=== PATIENT | female | born 1990 | race African-American/Black ===

== ENCOUNTER 2018-01-10 15:36 | Emergency (ER) | payer MEDICAID ==
[~2018-01-10] VITALS: Ht 180.3 cm; Wt 97.5 kg
[2018-01-10] MEDS ORDERED: Morphine Sulfate 4mg/ml Inj (IV/IM USE ONLY) IVP ONE (15:45)
[2018-01-10] MEDS ORDERED: Isovue-300 100ml vial INJ PRN (16:00)
[2018-01-10 16:10] VITALS: BP 132/76
[2018-01-10 16:16] LABS: BASOPHILS % (AUTO) 1.1 % (0.0-2.0); EOSINOPHILS % (AUTO) 0.3 % (0.0-3.0); HEMATOCRIT 33.8 % (37.0-47.0); HEMOGLOBIN 10.1 G/DL (12.0-16.0); MEAN CORPUSCULAR VOLUME 65 FL (80-99); MONOCYTES % (AUTO) 8.2 % (1.0-10.0); NEUTROPHILS % (AUTO) 70.4 % (45.0-75.0); PLATELET COUNT 407 K/UL (150-450); RED BLOOD COUNT 5.17 M/UL (4.20-5.40); WHITE BLOOD COUNT 9.7 K/UL (4.8-10.8)
[2018-01-10 16:17] LABS: APPEARANCE,URINE SLIGHTLY CLOUDY; BILIRUBIN, URINE NEGATIVE (NEGATIVE); COLOR,URINE PALE YELLOW; GLUCOSE, URINE (UA) NEGATIVE (NEGATIVE); KETONES,URINE 1+ (NEGATIVE); LEUKOCYTE ESTERASE ,URINE 3+ (NEGATIVE); NITRITE,URINE NEGATIVE (NEGATIVE); PH,URINE 8 (4.5-8.0); PROTEIN,URINE 1+ (NEGATIVE); UROBILINOGEN,URINE NORMAL MG/DL (0.0-1.0)
[2018-01-10 16:31] LABS: ANION GAP 13 mmol/L (5-15); BLOOD UREA NITROGEN 9 mg/dL (7-18); CALCIUM 9.8 MG/DL (8.5-10.1); CARBON DIOXIDE 24 MMOL/L (21-32); CHLORIDE 102 MMOL/L (98-107); CREATININE 0.7 MG/DL (0.55-1.30); SODIUM 139 MMOL/L (136-145)
[2018-01-10 16:35] LABS: ALANINE AMINOTRANSFERASE 8 U/L (12-78); ALBUMIN 3.6 G/DL (3.4-5.0); ALBUMIN/GLOBULIN RATIO 0.7 (1.0-2.7); ALKALINE PHOSPHATASE 59 U/L (46-116); ASPARTATE AMINO TRANSFERASE 8 U/L (15-37); BILIRUBIN,TOTAL 0.3 MG/DL (0.2-1.0)
[2018-01-10 17:55] VITALS: BP 133/80
[2018-01-10] MEDS ORDERED: COLACE100 MG ORAL (18:10)
[2018-01-10] MEDS ORDERED: ONDANSETRON ODT4 MG BC (18:10)
[2018-01-10] MEDS ORDERED: MAGNESIUM CITR296 M1 PO (18:10)
[2018-01-10] MEDS ORDERED: CEPHALEXIN500 MG ORAL (18:10)
[2018-01-10] MEDS ORDERED: METRONIDAZOLE500 MG ORAL (18:10)
[2018-01-10] MEDS ORDERED: IBUPROFEN600 MG ORAL (18:22)
[2018-01-10 18:25] VITALS: BP 133/80
--- NOTE | 2018-01-10 18:53 | Emergency Room Report ---
History of Present Illness General Chief Complaint: Abdominal Pain Source: Patient Present Illness HPI 27-year-old female presents ED for evaluation. Brought in by EMS complaining of abdominal pain with nausea and vomiting 1 day. Crying on evaluation. States that many years ago she had her right ovary removed. Does not know why. States pain is diffuse, 10 out of 10, sharp, nonradiating. Notes vomiting. Denies fevers chills. Denies dysuria or hematuria. States she's had this pain for many years now and does not know why. Has had ultrasounds of her abdomen which were negative. States she has a PMD. No other aggravating relieving factors. Denies any other associated symptoms Allergies: Coded Allergies: No Known Allergies (Unverified , 01/10/18) Patient History Past Medical History: none Past Surgical History: none Pertinent Family History: none Social History: Denies: smoking, alcohol use, drug use Last Menstrual Period: 01/04/18 Now: No : 0 Immunizations: UTD Reviewed Nursing Documentation: PMH: Agreed; PSxH: Agreed Review of Systems All Other Systems: negative except mentioned in HPI Physical Exam Vital Signs Date Time Temp Pulse Resp B/P (MAP) Pulse Ox O2 Delivery O2 Flow Rate FiO2 01/10/18 15:28 98.0 74 18 146/94 98 Room Air 98.1 Sp02 EP Interpretation: reviewed, normal General Appearance: alert, GCS 15, non-toxic, mild distress Head: normocephalic, atraumatic Eyes: bilateral eye normal inspection, bilateral eye PERRL ENT: hearing grossly normal, normal pharynx, no angioedema, normal voice Neck: full range of motion, supple/symm/no masses Respiratory: chest non-tender, lungs clear, normal breath sounds, speaking full sentences Cardiovascular #1: regular rate, rhythm, no edema Cardiovascular #2: 2+ carotid (R), 2+ carotid (L), 2+ radial (R), 2+ radial (L) , 2+ dorsalis pedis (R), 2+ dorsalis pedis (L) Gastrointestinal: normal bowel sounds, soft, non-distended, no guarding, no rebound, tenderness Rectal: deferred Genitourinary: normal inspection, no CVA tenderness Musculoskeletal: back normal, gait/station normal, normal range of motion, non- tender Neurologic: alert, oriented x3, responsive, motor strength/tone normal, sensory intact, speech normal Psychiatric: judgement/insight normal, memory normal, mood/affect normal, no suicidal/homicidal ideation Reflexes: 3+ bicep (R), 3+ bicep (L), 3+ tricep (R), 3+ tricep (L), 3+ knee (R) , 3+ knee (L) Skin: normal color, no rash, warm/dry, well hydrated Lymphatic: no adenopathy Medical Decision Making Diagnostic Impression: Primary Impression: Trichomonas infection Additional Impressions: UTI (urinary tract infection) Qualified Codes: N39.0 - Urinary tract infection, site not specified Constipation Qualified Codes: K59.00 - Constipation, unspecified ER Course Hospital Course 27-year-old F presents to ED with abdominal pain, vomiting Differential diagnosis includes-appendicitis, cholecystitis, small bowel obstruction, gastritis, Clinical course Patient placed on stretcher. After initial history and physical I ordered labs , IV fluids, pain medications and CT scan Labs - no leukocytosis, electrolytes ok, LFTs normal, UA + bacteria + trichimonas CT scan shows complex cystic structure on the left adnexa. Right-sided hydronephrosis with no evidence of stone. There was significant fecal impaction Patient did not have left quadrant pain. I do not believe the adnexa as a source of her pain. Pain was diffuse. Discussed findings with patient - states she will followup with her OBGYN. Presentation consistent with constipation We will prescribe stool softeners, antibiotics for the UTI and for the Trichomonas. Patient states she does have a PMD. Safe for discharge close outpatient follow-up I feel this is a highly complex case requiring extensive working including EKG/ Rhythm strip, Xray/CT/US, Blood/urine lab work, repeat exams while in ED, and administration of strong opiates/narcotics for pain control, admission to hospital or close patient follow up. Diagnosis - trichimonas infection, UTI, constipation Stable and discharged to home. Followup with PMD. Return to ED if symptoms recur or worsen Labs Test 01/10/18 16:08 White Blood Count 9.7 K/UL (4.8-10.8) Red Blood Count 5.17 M/UL (4.20-5.40) Hemoglobin 10.1 G/DL (12.0-16.0) Hematocrit 33.8 % (37.0-47.0) Mean Corpuscular Volume 65 FL (80-99) Mean Corpuscular Hemoglobin 19.5 PG (27.0-31.0) Mean Corpuscular Hemoglobin Concent 29.8 G/DL (32.0-36.0) Red Cell Distribution Width 15.0 % (11.6-14.8) Platelet Count 407 K/UL (150-450) Mean Platelet Volume 7.1 FL (6.5-10.1) Neutrophils (%) (Auto) 70.4 % (45.0-75.0) Lymphocytes (%) (Auto) 20.0 % (20.0-45.0) Monocytes (%) (Auto) 8.2 % (1.0-10.0) Eosinophils (%) (Auto) 0.3 % (0.0-3.0) Basophils (%) (Auto) 1.1 % (0.0-2.0) Urine Color Pale yellow Urine Appearance Slightly cloudy Urine pH 8 (4.5-8.0) Urine Specific [place] 1.010 (1.005-1.035) Urine Protein 1+ (NEGATIVE) Urine Glucose (UA) Negative (NEGATIVE) Urine Ketones 1+ (NEGATIVE) Urine Blood 1+ (NEGATIVE) Urine Nitrite Negative (NEGATIVE) Urine Bilirubin Negative (NEGATIVE) Urine Urobilinogen Normal MG/DL (0.0-1.0) Urine Leukocyte Esterase 3+ (NEGATIVE) Urine RBC 5-10 /HPF (0 - 2) Urine WBC 2-4 /HPF (0 - 2) Urine Squamous Epithelial Cells Many /LPF (NONE/OCC) Urine Bacteria Moderate /HPF (NONE) Urine Trichomonas Few /HPF (NONE) Urine HCG, Qualitative Negative (NEGATIVE) Sodium Level 139 MMOL/L (136-145) Potassium Level 3.0 MMOL/L (3.5-5.1) Chloride Level 102 MMOL/L (98-107) Carbon Dioxide Level 24 MMOL/L (21-32) Anion Gap 13 mmol/L (5-15) Blood Urea Nitrogen 9 mg/dL (7-18) Creatinine 0.7 MG/DL (0.55-1.30) Estimat Glomerular Filtration Rate > 60 mL/min (>60) Glucose Level 104 MG/DL (74-106) Calcium Level 9.8 MG/DL (8.5-10.1) Total Bilirubin 0.3 MG/DL (0.2-1.0) Aspartate Amino Transf (AST/SGOT) 8 U/L (15-37) Alanine Aminotransferase (ALT/SGPT) 8 U/L (12-78) Alkaline Phosphatase 59 U/L (46-116) Total Protein 8.6 G/DL (6.4-8.2) Albumin 3.6 G/DL (3.4-5.0) Globulin 5.0 g/dL Albumin/Globulin Ratio 0.7 (1.0-2.7) Lipase 134 U/L (73-393) CT/MRI/US Diagnostic Results CT/MRI/US Diagnostic Results : Imaging Test Ordered: CT A/P Impression 7.5 cm complex cystic structure in the left pelvis posterior to the uterus is favored to be arising from the left adnexum. This structure appears somewhat tubular and is favored to represent a dilated fallopian tube. Pyosalpinx or hemosalpinx is not excluded. Pelvic ultrasound may be considered for further characterization, as clinically indicated. Fluid in the pelvic cul-de-sac versus 9 cm cystic structure. Mild right hydronephrosis. No calcified renal or ureteral calculi. Subcentimeter pelvic calcifications are favored to be vascular. Spleen, pancreas, gallbladder, liver, and left kidney are unremarkable Last Vital Signs Date Time Temp Pulse Resp B/P (MAP) Pulse Ox O2 Delivery O2 Flow Rate FiO2 01/10/18 18:25 98.0 65 16 133/80 95 Room Air 98.0 Status: improved Disposition: HOME, SELF-CARE Condition: Stable Scripts Ibuprofen* (MOTRIN*) 600 Mg Tablet 600 MG ORAL Q8H PRN for For Pain, #30 TAB 0 Refills Prov: Quoc Noel MD 01/10/18 Metronidazole* (FLAGYL*) 500 Mg Tablet 500 MG ORAL THREE TIMES A DAY, #21 TAB Prov: Quoc Noel MD 01/10/18 Cephalexin* (KEFLEX*) 500 Mg Capsule 500 MG ORAL EVERY 6 HOURS for 7 Days, CAP Prov: Quoc Noel MD 01/10/18 Magnesium Citrate (MAGNESIUM CITRATE) 296 Ml Solution 150 ML PO DAILY for 2 Days, #296 ML Prov: Quoc Noel MD 01/10/18 Ondansetron Odt* (ZOFRAN ODT*) 4 Mg Tab.rapdis 4 MG BC EVERY 6 HOURS PRN for Nausea & Vomiting, #20 TAB 0 Refills Prov: Quoc Noel MD 01/10/18 Docusate Sodium* (COLACE*) 100 Mg Capsule 100 MG ORAL THREE TIMES A DAY for 30 Days, CAP Prov: Quoc Noel MD 01/10/18 Patient Instructions: Constipation, Adult, [id number], Trichomoniasis Quoc Noel MD Jan 10, 2018 18:52
--- NOTE | 2018-01-11 09:24 | Diagnostic Imaging Report ---
Indication: Abdominal pain Technique: Continuous helical transaxial imaging of the abdomen and pelvis was obtained from the lung bases to the pubic symphysis during intravenous contrast administration. Coronal 2-D reformats were also obtained. Study obtained in a Siemens sensation [address] Automatic Exposure Control was utilized. Total Dose length Product (DLP): 1054.[address] Dose Index Volume (CTDIvol): 18.4 mGy Comparison: None Findings: The lung bases are clear. There is mild right hydronephrosis. No obstructing stone is identified. Consider pyelonephritis or pyelitis. There is a complex somewhat elongated cystic structure posterior to the uterus. Further evaluation with ultrasound is recommended. On transaxial images the structure measures about 7 x 3 cm. There is a moderate degree of free fluid within the cul-de-sac. The appendix is normal. A few discrete diverticula noted in the sigmoid colon without definite evidence of diverticulitis. No evidence of bowel obstruction. The liver and spleen, pancreas, gallbladder appear unremarkable. The left kidney is unremarkable. IMPRESSION: 7 x 3 cm complex cystic structure posterior to the uterus not well evaluated on this examination. Further evaluation with pelvic ultrasound is recommended. Moderate free fluid also noted. Mild right hydronephrosis. No obstructing stone identified. Consider pyelonephritis. [facility] has communicated the preliminary results to the Emergency Department. Their findings are largely concordant with this report. The CT scanner at [facility] is accredited by the [employer] and the scans are performed using dose optimization techniques as appropriate to a performed exam including Automatic Exposure control.
== END 2018-01-10 18:27 | disposition home or self-care (01) ==
LOC: EDBD 15:36 → EMR 16:24
DX: N39.0 Urinary tract infection, site not specified (principal); A59.9 Trichomoniasis, unspecified; K59.00 Constipation, unspecified
CPT/HCPCS: 36415; 74177; 80053; 81003; 81025; 83690; 85025; 87086; 96361; 96374; 96375; 99284; J2270; J2405; Q9967

== ENCOUNTER 2018-03-17 20:58 | Emergency (ER) | payer MEDICAID ==
[~2018-03-17] VITALS: Ht 180.3 cm; Wt 104.3 kg
[~2018-03-17 20:58] MED LIST: CEPHALEXIN500 MG ORAL; COLACE100 MG ORAL; IBUPROFEN600 MG ORAL; MAGNESIUM CITR296 M1 PO; METRONIDAZOLE500 MG ORAL; ONDANSETRON ODT4 MG BC
[2018-03-17] MEDS ORDERED: NKM (21:05)
--- NOTE | 2018-03-17 21:31 | Emergency Room Report ---
History of Present Illness General Chief Complaint: Nausea, Vomiting, and Diarrhea Source: Patient, Medical Record Present Illness HPI Is a 27-year-old female who said she has a history of a large ovarian cyst that require surgery when she was younger. She also has a history of marijuana use. She presents with chief complaint abdominal pain and vomiting. This is a recurrent problem. Usually at night. She gets sharp pain and then wake up with several hours of vomiting. Also with constipation prior to the vomiting. Usually goes every 4 to 5 days without bowel movements. Vomiting is nonbloody nonbilious. Also with cramping pain. Pain is usually 7 out of 10. Better now. No diarrhea. Few years ago she was at another hospital and had a transabdominal ultrasound which show possible ovarian torsion. They wanted to get a transvaginal ultrasound but she signed out AMA. She was here a month ago had positive for Trichomonas for which she did not take any antibiotics. CT scan show a 7 x 3 cm right ovarian cyst. Allergies: Coded Allergies: No Known Allergies (Unverified , 03/17/18) Patient History Past Medical History: see triage record, old chart reviewed Past Surgical History: other Pertinent Family History: none Social History: Denies: smoking Last Menstrual Period: 03/17/18 Now: No Immunizations: other Reviewed Nursing Documentation: PMH: Agreed; PSxH: Agreed Nursing Documentation-PM Past Medical History: No History, Except For Review of Systems Eye: Denies: eye pain, blurred vision ENT: Denies: ear pain, nose congestion, throat swelling Respiratory: Denies: cough, shortness of breath Cardiovascular: Denies: chest pain, palpitations Gastrointestinal: Reports: abdominal pain, nausea, vomiting; Denies: diarrhea Musculoskeletal: Denies: back pain, joint pain Skin: Denies: rash Neurological: Denies: headache, numbness Endocrine: Denies: increased thirst, increased urine Hematologic/Lymphatic: Denies: easy bruising All Other Systems: negative except mentioned in HPI Physical Exam Vital Signs Date Time Temp Pulse Resp B/P (MAP) Pulse Ox O2 Delivery O2 Flow Rate FiO2 03/17/18 21:00 98.4 103 16 123/78 99 Room Air vitals normal Sp02 EP Interpretation: reviewed, normal General Appearance: well appearing, no apparent distress, alert Head: normocephalic, atraumatic Eyes: bilateral eye PERRL, bilateral eye EOMI ENT: hearing grossly normal, normal pharynx Neck: full range of motion, supple, no meningismus Respiratory: chest non-tender, lungs clear, normal breath sounds Cardiovascular #1: regular rate, rhythm, no murmur Gastrointestinal: normal bowel sounds, non tender, no mass, no organomegaly, no bruit, non-distended Musculoskeletal: back normal, gait/station normal, normal range of motion Psychiatric: mood/affect normal Skin: warm/dry Medical Decision Making Diagnostic Impression: Primary Impression: Cyclic vomiting syndrome Qualified Codes: G43.A0 - Cyclical vomiting, not intractable Additional Impressions: Abdominal pain Qualified Codes: R10.84 - Generalized abdominal pain Hemorrhagic cyst of ovary Anemia Qualified Codes: D64.9 - Anemia, unspecified Constipation Qualified Codes: K59.00 - Constipation, unspecified Trichomonas infection ER Course Patient presents with vomiting and abdominal pain. She may have cyclic vomiting syndrome since is a recovering thing. She is currently on her menstruation right now. Ultrasound showed a 4-5 cm cyst with hemorrhage component. No evidence of torsion. Pain is well-controlled. She never took the antibiotics for Trichomonas. We'll go ahead and treat again. No evidence of an acute abdomen. Lab Results Impression labs unremarkable CT/MRI/US Diagnostic Results CT/MRI/US Diagnostic Results : Imaging Test Ordered: Pelvic ultrasound Impression Read by radiologist. 4-5 cm right hemorrhagic ovarian cyst. Fibroid uterus. Last Vital Signs Date Time Temp Pulse Resp B/P (MAP) Pulse Ox O2 Delivery O2 Flow Rate FiO2 03/17/18 21:00 98.4 103 16 123/78 99 Room Air Status: improved Disposition: HOME, SELF-CARE Condition: Stable Scripts Polyethylene Glycol 3350* (MIRALAX*) 17 Gm Powd.pack 17 GM ORAL DAILY, #30 PACKET Prov: Cheng Seo MD 03/17/18 Ibuprofen* (MOTRIN*) 600 Mg Tablet 600 MG ORAL THREE TIMES A DAY, #30 TAB 0 Refills Prov: Cheng Seo MD 03/17/18 Hydrocodone/Acetaminophen 5-325* (HYDROCODONE/ACETAMINOPHEN 5-325*) 1 Each Tablet 1 TAB ORAL Q6H PRN for For Pain, #15 TAB 0 Refills Prov: Cheng Seo MD 03/17/18 Metronidazole* (FLAGYL*) 500 Mg Tablet 2000 MG ORAL ONCE, #4 TAB Prov: Cheng Seo MD 03/17/18 Additional Instructions: Follow-up with your doctor in 7 days. You may benefit from referral to see a docket clerk. Return if symptom worsen. Cheng Seo MD Mar 17, 2018 21:31
[2018-03-17 21:51] LABS: EOSINOPHILS % (AUTO) 0.3 % (0.0-3.0); HEMOGLOBIN 9.7 G/DL (12.0-16.0); LYMPHOCYTES % (AUTO) 23.1 % (20.0-45.0); MEAN CORPUSCULAR VOLUME 65 FL (80-99); MONOCYTES % (AUTO) 7.6 % (1.0-10.0); NEUTROPHILS % (AUTO) 67.9 % (45.0-75.0); PLATELET COUNT 306 K/UL (150-450); RED BLOOD COUNT 5.11 M/UL (4.20-5.40); RED CELL DISTRIBUTION WIDTH 16.4 % (11.6-14.8)
[2018-03-17 22:02] LABS: ANION GAP 9 mmol/L (5-15); BLOOD UREA NITROGEN 8 mg/dL (7-18); CALCIUM 9.7 MG/DL (8.5-10.1); CARBON DIOXIDE 30 MMOL/L (21-32); CHLORIDE 100 MMOL/L (98-107); CREATININE 0.8 MG/DL (0.55-1.30); POTASSIUM 3.5 MMOL/L (3.5-5.1); SODIUM 139 MMOL/L (136-145)
[2018-03-17 22:04] LABS: APPEARANCE,URINE SLIGHTLY CLOUDY; BILIRUBIN, URINE NEGATIVE (NEGATIVE); COLOR,URINE PALE YELLOW; GLUCOSE, URINE (UA) NEGATIVE (NEGATIVE); KETONES,URINE 4+ (NEGATIVE); LEUKOCYTE ESTERASE ,URINE 1+ (NEGATIVE); NITRITE,URINE NEGATIVE (NEGATIVE); PH,URINE 7 (4.5-8.0); PROTEIN,URINE 2+ (NEGATIVE); UROBILINOGEN,URINE NORMAL MG/DL (0.0-1.0)
[2018-03-17 22:08] VITALS: BP 123/78
[2018-03-17] MEDS ORDERED: Morphine Sulfate 4mg/ml Inj (IV/IM USE ONLY) IVP ONE (22:45)
[2018-03-17] MEDS ORDERED: Ketorolac 30mg Inj IV ONE (22:45)
[2018-03-17] MEDS ORDERED: IBUPROFEN600 MG ORAL (22:51)
[2018-03-17] MEDS ORDERED: HYDROCODON-ACE1 EA15 ORAL (22:51)
[2018-03-17] MEDS ORDERED: METRONIDAZOLE500 MG ORAL (22:51)
[2018-03-17] MEDS ORDERED: MIRALAX17 G2 ORAL (22:51)
[2018-03-17 23:00] VITALS: BP 126/72
--- NOTE | 2018-03-18 10:32 | Diagnostic Imaging Report ---
Indication: Abdominal pain; Known history of ovarian cyst Technique: Transabdominal and endovaginal pelvic ultrasound was performed. Comparison: CT of the abdomen and pelvis 01/10/2018 Findings: Heterogeneous masses are noted within the uterus, largest measures up to 3.5 cm. These most likely represent fibroids. Endometrium measures approximately 9.4 mm in thickness and is grossly unremarkable for patient's age. A large anechoic structure is noted posterior to the uterus, similar to the CT scan. This is only partially imaged. In the right adnexal region there is a complex cyst/mass which may or may not be contiguous with the more simple appearing structure posterior to the uterus. Some components of this structure containing lacy internal echoes which may be related to hemorrhage. Color and Doppler flow is noted in what appears to be some normal appearing right ovarian tissue. Apparent normal-appearing left ovary with demonstrable Doppler tracing. Overall evaluation of the ovaries is limited as there are not imaged on the transvaginal scan. IMPRESSION: Overall limited scan as ovaries not imaged on endovaginal scan. Complex cyst/mass seemingly arising from the right adnexal region. This contains some cystic components as well as some possibly hemorrhagic or solid components. This may or may not be contiguous with a more simple appearing but larger cystic structure which is noted posterior to the uterus (which is only partially visualized). Given limitations of the exam, recommend further evaluation with AUTOMOTIVE DESIGN DRAFTER protocoled MRI of the pelvis without and with contrast. Color flow and demonstrable Doppler waveforms noted within what appears to be normal right and left ovarian tissue, making the possibility of complete torsion less likely. Given limitations of study the possibility of intermittent torsions cannot be excluded, especially given the presence of a large likely adnexal mass. Heterogeneous uterine masses most likely representing fibroids. This is slightly discrepant from the preliminary interpretation of the treating ER clinician as documented in the electronic medical record. Limitations of the exam and follow-up imaging recommendations discussed with Dr. Tate of the ER the morning of 01/16/18.
== END 2018-03-17 23:00 | disposition home or self-care (01) ==
LOC: EMR 21:30
DX: G43.A0 Cyclical vomiting, in migraine, not intractable (principal); R10.9 Unspecified abdominal pain; N83.201 Unspecified ovarian cyst, right side; K59.00 Constipation, unspecified; A59.9 Trichomoniasis, unspecified; D64.9 Anemia, unspecified
CPT/HCPCS: 36415; 76830; 76856; 80048; 81003; 81025; 85025; 87086; 96374; 96375; 99284; J1885; J2270; J2405

== ENCOUNTER 2018-08-07 18:29 | Emergency (ER) | payer MEDICAID ==
[~2018-08-07] VITALS: Ht 180.3 cm; Wt 99.8 kg
[~2018-08-07 18:29] MED LIST changes: +HYDROCODON-ACE1 EA15 ORAL; +MIRALAX17 G2 ORAL; +NKM
[2018-08-07] MEDS ORDERED: NKM (18:36)
[2018-08-07 19:00] VITALS: BP 153/93
[2018-08-07] MEDS ORDERED: DiphenhydrAMINE 50mg/ml Inj IVP ONE (19:00)
[2018-08-07] MEDS ORDERED: Metoclopramide 10mg/2ml Inj IVP ONE (19:00)
[2018-08-07] MEDS ORDERED: Morphine Sulfate 4mg/ml Inj (IV USE ONLY) IVP ONE ×2 (19:00→22:00)
[2018-08-07 19:03] LABS: BASOPHILS % (AUTO) 1.2 % (0.0-2.0); EOSINOPHILS % (AUTO) 0.9 % (0.0-3.0); HEMATOCRIT 31.4 % (37.0-47.0); HEMOGLOBIN 9.4 G/DL (12.0-16.0); MEAN CORPUSCULAR VOLUME 62 FL (80-99); MONOCYTES % (AUTO) 8.4 % (1.0-10.0); NEUTROPHILS % (AUTO) 65.5 % (45.0-75.0); PLATELET COUNT 335 K/UL (150-450); RED BLOOD COUNT 5.07 M/UL (4.20-5.40); RED CELL DISTRIBUTION WIDTH 15.3 % (11.6-14.8); WHITE BLOOD COUNT 11.8 K/UL (4.8-10.8)
--- NOTE | 2018-08-07 19:03 | NUR ---
ED Nurse Note:pt. came with c/o abd pain nausea vomiting for 1 week, blood and urine sent to labs, pt. was given IV fluids and pain meds
--- NOTE | 2018-08-07 19:15 | NUR ---
HAND-OFF: Report given to Soo.
--- NOTE | 2018-08-07 19:15 | NUR ---
ED Nurse Note: Tatiana seems to be resting comfortably, she still reports pain of 4/10. ERMD informed.
[2018-08-07 19:20] LABS: ANION GAP 13 mmol/L (5-15); BLOOD UREA NITROGEN 11 mg/dL (7-18); CALCIUM 9.7 MG/DL (8.5-10.1); CARBON DIOXIDE 24 MMOL/L (21-32); CHLORIDE 102 MMOL/L (98-107); CREATININE 0.8 MG/DL (0.55-1.30); POTASSIUM 3.3 MMOL/L (3.5-5.1); SODIUM 139 MMOL/L (136-145)
[2018-08-07 19:24] LABS: ALANINE AMINOTRANSFERASE 15 U/L (12-78); ALBUMIN/GLOBULIN RATIO 0.9 (1.0-2.7); ALKALINE PHOSPHATASE 59 U/L (46-116); ASPARTATE AMINO TRANSFERASE 13 U/L (15-37); BILIRUBIN,TOTAL 0.6 MG/DL (0.2-1.0)
[2018-08-07 19:26] LABS: APPEARANCE,URINE SLIGHTLY CLOUDY; BILIRUBIN, URINE NEGATIVE (NEGATIVE); GLUCOSE, URINE (UA) NEGATIVE (NEGATIVE); KETONES,URINE 3+ (NEGATIVE); LEUKOCYTE ESTERASE ,URINE 2+ (NEGATIVE); NITRITE,URINE NEGATIVE (NEGATIVE); PH,URINE 6 (4.5-8.0); PROTEIN,URINE 2+ (NEGATIVE); UROBILINOGEN,URINE NORMAL MG/DL (0.0-1.0)
[2018-08-07 19:29] LABS: COLOR,URINE YELLOW
--- NOTE | 2018-08-07 19:35 | NUR ---
ED Nurse Note: Patient requested ice for her throat. She stated that its burning.
[2018-08-07] MEDS ORDERED: cefTRIAXone 1 GM in NS 55 ML IVPB ONE (19:45)
[2018-08-07] MEDS ORDERED: Ketorolac 30mg Inj IV ONE (19:45)
--- NOTE | 2018-08-07 20:00 | Emergency Room Report ---
History of Present Illness General Chief Complaint: Abdominal Pain Source: Patient, Medical Record (Faheem Tate DO) Present Illness HPI Patient presents with complaints of diffuse abdominal pain nausea vomiting Patient reports that ongoing for the past several days No obvious fevers patient feels that she is constipated Upon arrival patient is fairly histrionic yelling actively nauseated and vomiting patient has had previous presentation here with findings consistent with ovarian cyst Findings also consistent with cyclical vomiting secondary to marijuana abuse Patient denies any trauma denies any recent travel (Faheem Tate DO) Allergies: Coded Allergies: No Known Allergies (Unverified , 03/17/18) Patient History Past Medical History: see triage record Pertinent Family History: none Last Menstrual Period: 07/21/18 Reviewed Nursing Documentation: PMH: Agreed; PSxH: Agreed (Faheem Tate DO) Nursing Documentation-PMH Past Medical History: No History, Except For (Faheem Tate DO) Review of Systems All Other Systems: negative except mentioned in HPI (Faheem Tate DO) Physical Exam Vital Signs Date Time Temp Pulse Resp B/P (MAP) Pulse Ox O2 Delivery O2 Flow Rate FiO2 08/07/18 18:32 98.2 63 20 100 Room Air 08/07/18 19:00 153/93 Sp02 EP Interpretation: reviewed, normal General Appearance: moderate distress - Actively vomiting Head: normocephalic, atraumatic Eyes: bilateral eye PERRL, bilateral eye EOMI ENT: hearing grossly normal, normal pharynx Neck: supple Respiratory: lungs clear, no respiratory distress, no retraction Cardiovascular #1: regular rate, rhythm Gastrointestinal: non tender, soft Genitourinary: no CVA tenderness Musculoskeletal: normal inspection Neurologic: alert, oriented x3, responsive Skin: normal color, no rash Lymphatic: no adenopathy (Faheem Tate DO) Medical Decision Making Diagnostic Impression: Primary Impression: Pyelonephritis Additional Impressions: Trichomonas infection Cyclic vomiting syndrome Qualified Codes: G43.A1 - Cyclical vomiting, intractable Labs Test 08/07/18 18:45 08/07/18 19:00 White Blood Count 11.8 K/UL (4.8-10.8) Red Blood Count 5.07 M/UL (4.20-5.40) Hemoglobin 9.4 G/DL (12.0-16.0) Hematocrit 31.4 % (37.0-47.0) Mean Corpuscular Volume 62 FL (80-99) Mean Corpuscular Hemoglobin 18.6 PG (27.0-31.0) Mean Corpuscular Hemoglobin Concent 30.0 G/DL (32.0-36.0) Red Cell Distribution Width 15.3 % (11.6-14.8) Platelet Count 335 K/UL (150-450) Mean Platelet Volume 5.8 FL (6.5-10.1) Neutrophils (%) (Auto) 65.5 % (45.0-75.0) Lymphocytes (%) (Auto) 24.0 % (20.0-45.0) Monocytes (%) (Auto) 8.4 % (1.0-10.0) Eosinophils (%) (Auto) 0.9 % (0.0-3.0) Basophils (%) (Auto) 1.2 % (0.0-2.0) Sodium Level 139 MMOL/L (136-145) Potassium Level 3.3 MMOL/L (3.5-5.1) Chloride Level 102 MMOL/L (98-107) Carbon Dioxide Level 24 MMOL/L (21-32) Anion Gap 13 mmol/L (5-15) Blood Urea Nitrogen 11 mg/dL (7-18) Creatinine 0.8 MG/DL (0.55-1.30) Estimat Glomerular Filtration Rate > 60 mL/min (>60) Glucose Level 99 MG/DL (74-106) Calcium Level 9.7 MG/DL (8.5-10.1) Total Bilirubin 0.6 MG/DL (0.2-1.0) Aspartate Amino Transf (AST/SGOT) 13 U/L (15-37) Alanine Aminotransferase (ALT/SGPT) 15 U/L (12-78) Alkaline Phosphatase 59 U/L (46-116) Total Protein 8.6 G/DL (6.4-8.2) Albumin 4.0 G/DL (3.4-5.0) Globulin 4.6 g/dL Albumin/Globulin Ratio 0.9 (1.0-2.7) Lipase 106 U/L (73-393) Urine Color Yellow Urine Appearance Slightly cloudy Urine pH 6 (4.5-8.0) Urine Specific [place] 1.020 (1.005-1.035) Urine Protein 2+ (NEGATIVE) Urine Glucose (UA) Negative (NEGATIVE) Urine Ketones 3+ (NEGATIVE) Urine Blood 3+ (NEGATIVE) Urine Nitrite Negative (NEGATIVE) Urine Bilirubin Negative (NEGATIVE) Urine Urobilinogen Normal MG/DL (0.0-1.0) Urine Leukocyte Esterase 2+ (NEGATIVE) Urine RBC 5-10 /HPF (0 - 2) Urine WBC 15-20 /HPF (0 - 2) Urine Squamous Epithelial Cells Many /LPF (NONE/OCC) Urine Bacteria Many /HPF (NONE) Urine Trichomonas Many /HPF (NONE) Urine HCG, Qualitative Negative (NEGATIVE) Urine Opiates Screen Negative (NEGATIVE) Urine Barbiturates Screen Negative (NEGATIVE) Phencyclidine (PCP) Screen Negative (NEGATIVE) Urine Amphetamines Screen Negative (NEGATIVE) Urine Benzodiazepines Screen Negative (NEGATIVE) Urine Cocaine Screen Negative (NEGATIVE) Urine Marijuana (THC) Screen Positive (NEGATIVE) (Faheem Tate DO) ER Course Patient signout to me. She presents with abdominal pain with nausea vomiting and diarrhea. This is similar to her previous presentation. Labs unremarkable. She does show possible UTI and dehydration. They sent her insurance, she is stable for transfer. I discussed the case with Dr. Ontiveros accepted her for transfer to [place]. (Cheng Seo MD) Last Vital Signs Date Time Temp Pulse Resp B/P (MAP) Pulse Ox O2 Delivery O2 Flow Rate FiO2 08/07/18 19:15 98.2 08/07/18 19:00 63 20 153/93 100 Room Air (Faheem Tate DO) Status: improved (Cheng Seo MD) Disposition: XFER SHT-TRM HOSP Condition: Stable Referrals: [facility],REFERRING (PCP) Faheem Tate DO August 07, 2018 20:00 Cheng Seo MD August 07, 2018 22:11
--- NOTE | 2018-08-07 20:46 | NUR ---
ED Nurse Note: Patient resting comfortably, no s/s of acute distress. Patient tolerated IV antibiotics well. Patient's significant other at bedside. ERMD just left bedside after providing patient with plan of care.
--- NOTE | 2018-08-07 21:54 | NUR ---
ED Nurse Note: Tatiana is beginning to moan again, reports a pain of 6/10. Blood pressure is elevated. Cuff size switched and rechecked. ERMD informed.
[2018-08-07] MEDS ORDERED: Morphine Sulfate 4mg/ml Inj (IV USE ONLY) ONE (21:57)
--- NOTE | 2018-08-07 22:17 | NUR ---
ED Nurse Note: Patient tolerated medication well, patient affect improved. Blood pressure responded to decrease in pain.
[2018-08-07 22:18] VITALS: BP 149/73
[2018-08-07] MEDS ORDERED: metroNIDAZOLE 500mg tab ORAL ONE (22:30)
--- NOTE | 2018-08-08 00:29 | NUR ---
ED Nurse Note: Called and gave report to Abebe CLARKE, patient is ambulatory with steady gait, A&ox4, no skin issues, IV at right AC 20G saline locked. BLS here for pickers material handlers. Report given to shirin. vital signs stable.
[2018-08-08 00:31] VITALS: BP 154/100
== END 2018-08-08 00:32 | disposition short-term general hospital (02) ==
LOC: EMR 19:13
DX: N12 Tubulo-interstitial nephritis, not specified as acute or chronic (principal); A59.9 Trichomoniasis, unspecified; G43.A1 Cyclical vomiting, in migraine, intractable; F12.10 Cannabis abuse, uncomplicated
CPT/HCPCS: 36415; 80053; 80307; 81003; 81025; 83690; 85025; 87086; 96361; 96365; 96375; 99285; J0696; J1200; J1885; J2270; J2765

== ENCOUNTER 2018-10-07 23:56 | Emergency (ER) | payer MEDICAID ==
[~2018-10-07] VITALS: Ht 180.3 cm; Wt 95.7 kg
--- NOTE | 2018-10-08 00:29 | Emergency Room Report ---
History of Present Illness General Chief Complaint: Nausea, Vomiting, and Diarrhea Source: Patient Present Illness HPI This is a 27-year-old female who presents with complaint abdominal pain and vomiting. Onset for couple months now. She has weight loss because she cannot keep anything down. Pain is crampy in nature. No diarrhea. Sabula constipated. Pain is sharp and crampy. 7 out of 10. Denies any other complaint. She was here couple months ago and CT scan show a large cyst. Ultrasound showed it was a fibroid and not ovarian cyst. She never had any outpatient follow-up. Allergies: Coded Allergies: No Known Allergies (Unverified , 03/17/18) Patient History Past Medical History: see triage record, old chart reviewed Past Surgical History: none Pertinent Family History: none Social History: Denies: smoking Now: No Immunizations: other Reviewed Nursing Documentation: PMH: Agreed; PSxH: Agreed Nursing Documentation-PMH Past Medical History: No History, Except For Review of Systems Eye: Denies: eye pain, blurred vision ENT: Denies: ear pain, nose congestion, throat swelling Respiratory: Denies: cough, shortness of breath Cardiovascular: Denies: chest pain, palpitations Gastrointestinal: Reports: abdominal pain, nausea, vomiting; Denies: diarrhea Musculoskeletal: Denies: back pain, joint pain Skin: Denies: rash Neurological: Denies: headache, numbness Endocrine: Denies: increased thirst, increased urine Hematologic/Lymphatic: Denies: easy bruising All Other Systems: negative except mentioned in HPI Physical Exam Vital Signs Date Time Temp Pulse Resp B/P (MAP) Pulse Ox O2 Delivery O2 Flow Rate FiO2 10/07/18 23:59 98.4 90 18 121/83 (96) 98 Room Air Vitals normal Sp02 EP Interpretation: reviewed, normal General Appearance: well appearing, no apparent distress, alert, obese Head: normocephalic, atraumatic Eyes: bilateral eye PERRL, bilateral eye EOMI ENT: hearing grossly normal, normal pharynx Neck: full range of motion, supple, no meningismus Respiratory: chest non-tender, lungs clear, normal breath sounds Cardiovascular #1: regular rate, rhythm, no murmur Gastrointestinal: normal bowel sounds, non tender, no mass, no organomegaly, no bruit, non-distended Musculoskeletal: back normal, gait/station normal, normal range of motion Psychiatric: mood/affect normal Medical Decision Making Diagnostic Impression: Primary Impression: Abdominal pain Qualified Codes: R10.84 - Generalized abdominal pain Additional Impressions: Nausea & vomiting Qualified Codes: R11.2 - Nausea with vomiting, unspecified Anemia, unspecified Qualified Codes: D64.9 - Anemia, unspecified Ovarian cyst Qualified Codes: N83.202 - Unspecified ovarian cyst, left side ER Course Patient presents with persistent nausea and vomiting. Unknown etiology. Recommend outpatient follow-up with GI doctor. No acute abdomen. No obstruction. She does have a left ovarian cyst that may have ruptured. Last time she was here was a right side. No evidence of any torsion. She is comfortable now. Will discharge home. CT/MRI/US Diagnostic Results CT/MRI/US Diagnostic Results : Imaging Test Ordered: CT abdomen pelvis Impression read By radiologist. 6 cm cystic mass left ovary. Cannot exclude ruptured ovarian cyst. Last Vital Signs Date Time Temp Pulse Resp B/P (MAP) Pulse Ox O2 Delivery O2 Flow Rate FiO2 10/07/18 23:59 98.4 90 18 121/83 (96) 98 Room Air Status: improved Disposition: HOME, SELF-CARE Condition: Stable Scripts Ibuprofen* (MOTRIN*) 600 Mg Tablet 600 MG ORAL THREE TIMES A DAY, #30 TAB 0 Refills Prov: Cheng Seo MD 10/08/18 Hydrocodone/Acetaminophen 5-325* (HYDROCODONE/ACETAMINOPHEN 5-325*) 1 Each Tablet 1 TAB ORAL Q6H PRN for For Pain, #10 TAB 0 Refills Prov: Cheng Seo MD 10/08/18 Additional Instructions: Follow up with your doctor in 7 days. Recommend referral to see dehydrogenation converter operator. Return if symptoms worsen. Cheng Seo MD Oct 08, 2018 00:29
[2018-10-08 00:30] VITALS: BP 120/85
[2018-10-08 00:38] LABS: BILIRUBIN, URINE NEGATIVE (NEGATIVE); COLOR,URINE PALE YELLOW; GLUCOSE, URINE (UA) NEGATIVE (NEGATIVE); KETONES,URINE 2+ (NEGATIVE); LEUKOCYTE ESTERASE ,URINE 1+ (NEGATIVE); NITRITE,URINE NEGATIVE (NEGATIVE); PH,URINE 7 (4.5-8.0); PROTEIN,URINE 1+ (NEGATIVE); UROBILINOGEN,URINE NORMAL MG/DL (0.0-1.0)
[2018-10-08 00:45] LABS: BASOPHILS % (AUTO) 1.1 % (0.0-2.0); EOSINOPHILS % (AUTO) 0.5 % (0.0-3.0); HEMOGLOBIN 9.3 G/DL (12.0-16.0); LYMPHOCYTES % (AUTO) 29.9 % (20.0-45.0); MEAN CORPUSCULAR VOLUME 63 FL (80-99); MONOCYTES % (AUTO) 12.1 % (1.0-10.0); NEUTROPHILS % (AUTO) 56.4 % (45.0-75.0); PLATELET COUNT 301 K/UL (150-450); RED BLOOD COUNT 4.96 M/UL (4.20-5.40); RED CELL DISTRIBUTION WIDTH 15.8 % (11.6-14.8)
[2018-10-08 00:47] LABS: ANION GAP 10 mmol/L (5-15); BLOOD UREA NITROGEN 7 mg/dL (7-18); CALCIUM 9.6 MG/DL (8.5-10.1); CARBON DIOXIDE 30 MMOL/L (21-32); CHLORIDE 102 MMOL/L (98-107); CREATININE 0.8 MG/DL (0.55-1.30); POTASSIUM 3.3 MMOL/L (3.5-5.1); SODIUM 141 MMOL/L (136-145)
[2018-10-08 00:48] LABS: APPEARANCE,URINE CLEAR
[2018-10-08 00:52] LABS: ALANINE AMINOTRANSFERASE 9 U/L (12-78); ALBUMIN 3.8 G/DL (3.4-5.0); ALBUMIN/GLOBULIN RATIO 0.8 (1.0-2.7); ALKALINE PHOSPHATASE 56 U/L (46-116); ASPARTATE AMINO TRANSFERASE 11 U/L (15-37); BILIRUBIN,TOTAL 0.4 MG/DL (0.2-1.0)
[2018-10-08] MEDS: Metoclopramide 10mg/2ml Inj IVP ONE (01:08)
[2018-10-08] MEDS ORDERED: Ketorolac 30mg Inj ONE (01:14)
[2018-10-08] MEDS: Ketorolac 30mg Inj IV ONE (01:17)
[2018-10-08] MEDS ORDERED: IBUPROFEN600 MG ORAL (02:11)
[2018-10-08] MEDS ORDERED: HYDROCODON-ACE1 EA15 ORAL (02:11)
[2018-10-08 02:30] VITALS: BP 115/70
--- NOTE | 2018-10-08 09:37 | Diagnostic Imaging Report ---
Indication: Indication: Abdominal pain and flank pain for 2 days Technique: Spiral acquisitions obtained through the abdomen and pelvis. No oral or IV contrast utilized, per urinary stone protocol. Multiplanar reconstructions were generated. Total dose length product 922.71 mGycm. CTDIvol(s) 16.58 mGy. Dose reduction achieved using automated exposure control Comparison: 01/10/2018 contrast study Findings: No renal or ureteral calculi, hydronephrosis, or hydroureter demonstrated. Lack of IV contrast limits assessment of the renal parenchyma. No gross renal parenchymal mass or cyst demonstrated. Complex cystic structure is seen posterior to the uterus, possibly tubular also reported previously and also demonstrated on prior pelvic sonogram. There is a moderate amount of free pelvic fluid demonstrated. Lack of IV contrast limits assessment of the other solid organs. The liver, gallbladder, bile ducts, pancreas, spleen, adrenals are unremarkable. No retroperitoneal or mesenteric mass or adenopathy. There are a few colonic diverticula. No evidence of diverticulitis. The appendix is normal. No small bowel distention. No free or loculated intraperitoneal gas or fluid is evident. Distal esophagus, stomach, duodenum are unremarkable. The included lung bases are clear. The bones are unremarkable. Impression: Demonstrated is a complex cystic structure, possibly tubular in nature and possibly containing solid components, also described on prior 01/10/2018 CT and 03/17/2018 sonogram. Less well demonstrated on prior contrast study. Possibly a hydrosalpinx but other etiologies possible. As previously recommended, if this has not been worked up then further evaluation with ENTRY LEVEL ACCOUNT MANAGER protocol MRI is recommended. Moderate free cul-de-sac fluid. May indicate recent ovarian cyst rupture Colonic diverticulosis. No evidence of diverticulitis This essentially agrees with the [facility] preliminary report The CT scanner at [facility] is accredited by the [employer] and the scans are performed using protocols designed to limit radiation exposure to as low as reasonably achievable to attain images of sufficient resolution adequate for diagnostic evaluation. Technique: Spiral acquisitions obtained through the abdomen and pelvis. No oral contrast utilized, per emergency room physician request No IV contrast utilized, per referring physician request.. Multiplanar reconstructions were generated. Total dose length product 922.71 mGycm. CTDIvol(s) 16.58 mGy. Dose reduction achieved using automated exposure control Comparison: Findings: Impression: The CT scanner at [facility] is accredited by the [employer] and the scans are performed using protocols designed to limit radiation exposure to as low as reasonably achievable to attain images of sufficient resolution adequate for diagnostic evaluation.
== END 2018-10-08 02:30 | disposition home or self-care (01) ==
LOC: EMR 10-08 01:07
DX: R10.9 Unspecified abdominal pain (principal); R11.2 Nausea with vomiting, unspecified; D64.9 Anemia, unspecified; N83.202 Unspecified ovarian cyst, left side; K57.30 Diverticulosis of large intestine without perforation or abscess without bleeding
CPT/HCPCS: 36415; 74176; 80053; 81003; 81025; 83690; 85025; 96361; 96374; 96375; 99284; J1885; J2765

== ENCOUNTER 2019-07-23 16:19 | Emergency (ER) | payer MEDICAID ==
[~2019-07-23] VITALS: Ht 180.3 cm; Wt 91.6 kg
--- NOTE | 2019-07-23 16:32 | NUR ---
ED Nurse Note: Pt walked into ED w/ abdominal pain over whole abdomen for 8 days. Pain is 8/10. Pt has vomited more than 10x and is feeling weak. Pt currently has nausea. Pt is alert and orientedx4, ambulatory. Pt has no history of ab issues.
[2019-07-23 16:35] VITALS: BP 133/72
--- NOTE | 2019-07-23 16:35 | NUR ---
ED Nurse Note: Pt now states she has history of diverticulitis and ovarian cysts.
[2019-07-23] MEDS ORDERED: Ketorolac 30mg Inj IV ONE (16:45)
[2019-07-23] MEDS ORDERED: Omnipaque-300 100ml vial INJ PRN (16:45)
[2019-07-23 17:12] LABS: EOSINOPHILS % (AUTO) 0.4 % (0.0-3.0); HEMATOCRIT 34.6 % (37.0-47.0); HEMOGLOBIN 9.6 G/DL (12.0-16.0); LYMPHOCYTES % (AUTO) 21.9 % (20.0-45.0); MEAN CORPUSCULAR VOLUME 64 FL (80-99); MONOCYTES % (AUTO) 6.9 % (1.0-10.0); NEUTROPHILS % (AUTO) 69.8 % (45.0-75.0); PLATELET COUNT 292 K/UL (150-450); RED BLOOD COUNT 5.42 M/UL (4.20-5.40); RED CELL DISTRIBUTION WIDTH 17.7 % (11.6-14.8); WHITE BLOOD COUNT 7.1 K/UL (4.8-10.8)
[2019-07-23 17:17] LABS: APPEARANCE,URINE CLEAR; BILIRUBIN, URINE NEGATIVE (NEGATIVE); GLUCOSE, URINE (UA) NEGATIVE (NEGATIVE); KETONES,URINE 4+ (NEGATIVE); LEUKOCYTE ESTERASE ,URINE 1+ (NEGATIVE); NITRITE,URINE NEGATIVE (NEGATIVE); PH,URINE 6.5 (4.5-8.0); PROTEIN,URINE 1+ (NEGATIVE); UROBILINOGEN,URINE NORMAL MG/DL (0.0-1.0)
[2019-07-23 17:18] LABS: ANION GAP 11 mmol/L (5-15); BLOOD UREA NITROGEN 7 mg/dL (7-18); CALCIUM 9.2 MG/DL (8.5-10.1); CARBON DIOXIDE 26 MMOL/L (21-32); CHLORIDE 104 MMOL/L (98-107); CREATININE 0.9 MG/DL (0.55-1.30); POTASSIUM 3.4 MMOL/L (3.5-5.1); SODIUM 141 MMOL/L (136-145)
[2019-07-23 17:20] LABS: COLOR,URINE YELLOW
[2019-07-23 17:23] LABS: ALANINE AMINOTRANSFERASE 25 U/L (12-78); ALBUMIN/GLOBULIN RATIO 0.8 (1.0-2.7); ALKALINE PHOSPHATASE 57 U/L (46-116); ASPARTATE AMINO TRANSFERASE 15 U/L (15-37); BILIRUBIN,TOTAL 0.5 MG/DL (0.2-1.0); CREATINE KINASE 34 U/L (26-308)
[2019-07-23] MEDS ORDERED: Capsaicin 0.075% Cream TOPIC SCH (17:30)
--- NOTE | 2019-07-23 17:56 | NUR ---
ED Nurse Note: Pt takent to CT. VIRY Joseph aware pt still vomiting and is asking for antiemetic.
[2019-07-23] MEDS ORDERED: Morphine Sulfate 2mg/ml Inj(IV/IM USE ONLY) IVP ONE (18:15)
--- NOTE | 2019-07-23 18:41 | Diagnostic Imaging Report ---
EXAM: CT Abdomen and Pelvis With Intravenous Contrast CLINICAL HISTORY: ABD PAIN TECHNIQUE: Axial computed tomography images of the abdomen and pelvis with intravenous contrast. CTDI is 7 mGy and DLP is 349 mGy-cm. One or more of the following dose reduction techniques were used: automated exposure control, adjustment of the mA and/or kV according to patient size, use of iterative reconstruction technique. Coronal and sagittal reformatted images were created and reviewed. COMPARISON: 01/10/18; 10/08/18 FINDINGS: Lung bases: Unremarkable. No mass. No consolidation. ABDOMEN: Liver: Unremarkable. No mass. Gallbladder and bile ducts: Unremarkable. No calcified stones. No ductal dilation. Pancreas: Unremarkable. No mass. No ductal dilation. Spleen: Unremarkable. No splenomegaly. Adrenals: Unremarkable. No mass. Kidneys and ureters: Unremarkable. No solid mass. No hydronephrosis. Stomach and bowel: Unremarkable. No obstruction. No mucosal thickening. PELVIS: Appendix: No findings to suggest acute appendicitis. Bladder: Unremarkable. No mass. Reproductive: Enlarged fibroid uterus. ABDOMEN and PELVIS: Intraperitoneal space: Moderate low-attenuation nonloculated pelvic fluid of uncertain significance, this could be seen with ruptured follicular cyst or could be reactive. No free air. Bones/joints: No acute fracture. No dislocation. Soft tissues: Unremarkable. Vasculature: Unremarkable. No abdominal aortic aneurysm. Lymph nodes: Unremarkable. No enlarged lymph nodes. Other findings: Otherwise no definitive acute abnormality seen. If there is further concern for pelvic pathology, recommend pelvic ultrasound. IMPRESSION: 1. Otherwise no definitive acute abnormality seen. 2. Moderate low-attenuation nonloculated pelvic fluid of uncertain significance, this could be seen with ruptured follicular cyst or could be reactive. 3. Enlarged fibroid uterus. 4. If there is further concern for pelvic pathology, recommend pelvic ultrasound.
--- NOTE | 2019-07-23 19:03 | Emergency Room Report ---
History of Present Illness General Chief Complaint: Abdominal Pain Source: Patient Present Illness HPI 28-year-old female with history of diverticulosis as well as right-sided ovarian cyst here complaining of 1 week of diffuse abdominal pain and multiple bouts of nonbloody emesis. Complains of nausea however denies diarrhea or constipation. Denies chest pain, shortness of breath, palpitation, headache and dizziness. Denies fever and chills. Reports that she has a pending referral to PROTOTYPE CARPENTER regarding her ovarian cyst. Complains of generalized weakness at this time. Neurovascularly intact. Denies any drug use. Reports that every now and then she is smoked marijuana. Denies tobacco smoke, alcohol intake. Reports her last menstrual period was 3 weeks ago and regular. Denies any vaginal discharge. Allergies: Coded Allergies: No Known Allergies (Unverified , 03/17/18) COVID-19 Screening Contact w/high risk pt: No Recent Travel to affected area: No Experienced COVID-19 symptoms?: No Patient History Past Medical History: see triage record Past Surgical History: none Pertinent Family History: none Social History: Reports: drug use - Marijuana use Now: No Immunizations: UTD Reviewed Nursing Documentation: PMH: Agreed; PSxH: Agreed Nursing Documentation-PMH Past Medical History: No History, Except For Review of Systems All Other Systems: negative except mentioned in HPI Physical Exam Vital Signs Date Time Temp Pulse Resp B/P (MAP) Pulse Ox O2 Delivery O2 Flow Rate FiO2 07/23/19 16:23 98.2 103 18 128/75 (92) 98 Room Air 07/23/19 16:35 100 Sp02 EP Interpretation: reviewed, normal General Appearance: no apparent distress, alert, GCS 15, non-toxic Head: normocephalic, atraumatic Eyes: bilateral eye normal inspection, bilateral eye PERRL ENT: hearing grossly normal, normal pharynx, no angioedema, normal voice Neck: full range of motion, supple/symm/no masses Respiratory: chest non-tender, lungs clear, normal breath sounds, no rhonchi, speaking full sentences Cardiovascular #1: regular rate, rhythm, no edema Gastrointestinal: non tender, soft, no mass, no organomegaly, no peritonitis, no bruit Genitourinary: no CVA tenderness Musculoskeletal: back normal Neurologic: alert, motor strength/tone normal, oriented x3, sensory intact, responsive, speech normal Psychiatric: judgement/insight normal, memory normal, mood/affect normal, no suicidal/homicidal ideation Skin: no rash Lymphatic: no adenopathy Medical Decision Making PA Attestation All diagnoses and treatment plans were reviewed and discussed with my supervising physician Dr. Fleming Diagnostic Impression: Primary Impression: Ovarian cyst rupture Additional Impressions: Iron deficiency anemia Fibroids Marijuana abuse ER Course 28-year-old female with history of diverticulosis as well as right-sided ovarian cyst here complaining of 1 week of diffuse abdominal pain and multiple bouts of nonbloody emesis. Complains of nausea however denies diarrhea or constipation. Denies chest pain, shortness of breath, palpitation, headache and dizziness. Denies fever and chills. Reports that she has a pending referral to PROTOTYPE CARPENTER regarding her ovarian cyst. Complains of generalized weakness at this time. Neurovascularly intact. Denies any drug use. Reports that every now and then she is smoked marijuana. Denies tobacco smoke, alcohol intake. Reports her last menstrual period was 3 weeks ago and regular. Denies any vaginal discharge. Ddx considered but are not limited to: appendicitis, cholecystis, gastritis, gastroenteritis, UTI, pyelonephritis, SBO, diverticulitis, influenza with GI manifestation, NM, complication with Uterine fibroids, ovarian cyst, Vital signs: are WNL, pt. is afebrile H&PE are most consistent with: Possible ruptured ovarian cyst, iron deficiency anemia, uterine fibroids, marijuana abuse ORDERS: abdominal CT, abdominal pain set, ibuprofen, omeprazole, Zofran, ferrous sulfate, tylenol #3 ED INTERVENTIONS: NS bolus, Zofran, Pepcid, Toradol, morphine DISCHARGE: At this time pt. is stable for d/c to home. Will provide printed patient care instructions, and any necessary prescriptions. Care plan and follow up instructions have been discussed with the patient prior to discharge. Patient to follow-up with PROTOTYPE CARPENTER, at this time white count within normal limit no signs of infection noted. Patient take medication as directed, avoid drinking alcohol, avoid smoking marijuana, if worsening symptoms return to the emergency room. CT/MRI/US Diagnostic Results CT/MRI/US Diagnostic Results : Imaging Test Ordered: CT abdomen pelvis with contrast Impression IMPRESSION: 1. Otherwise no definitive acute abnormality seen. 2. Moderate low-attenuation nonloculated pelvic fluid of uncertain significance , this could be seen with ruptured follicular cyst or could be reactive. 3. Enlarged fibroid uterus. 4. If there is further concern for pelvic pathology, recommend pelvic ultrasound. Last Vital Signs Date Time Temp Pulse Resp B/P (MAP) Pulse Ox O2 Delivery O2 Flow Rate FiO2 07/23/19 16:35 98.2 99 17 133/72 100 Room Air 07/23/19 16:35 100 Disposition: HOME, SELF-CARE Condition: Stable Scripts Acetaminophen With Codeine (T#3) (TYLENOL #3 TAB*) Y Tab 1 TAB ORAL Q8HR PRN for For Pain for 3 Days, #10 TAB Prov: Jake Tinajero 07/23/19 Omeprazole (OMEPRAZOLE) 20 Mg Tablet.dr 20 MG ORAL DAILY, #30 TAB Prov: Jake Tinajero 07/23/19 Ferrous Sulfate* (FERROUS SULFATE*) 325 Mg Tablet 325 MG ORAL TWICE A DAY, #60 TAB 0 Refills Prov: Jake Tinajero 07/23/19 Ondansetron (Zofran) 4 Mg Tablet 4 MG ORAL Q6H PRN for Nausea & Vomiting, #14 TAB Prov: Jake Tinajero 07/23/19 Ibuprofen* (MOTRIN*) 600 Mg Tablet 600 MG ORAL Q6H PRN for For Pain, #30 TAB 0 Refills Prov: Jake Tinajero 07/23/19 Referrals: NON PHYSICIAN (PCP) Patient Instructions: Abdominal Pain, Adult, Cannabis Use Disorder, Iron Deficiency Anemia, Adult, [id number], Ovarian Cyst, [id number] Additional Instructions: Take medication as directed, follow-up with PROTOTYPE CARPENTER, avoid smoking marijuana, if worsening symptoms return to the emergency room Jake Tinajero July 23, 2019 19:03
[2019-07-23] MEDS ORDERED: OMEPRAZOLE20 M3 ORAL (19:06)
[2019-07-23] MEDS ORDERED: ZOFRAN4 M1 ORAL (19:06)
[2019-07-23] MEDS ORDERED: IBUPROFEN600 M1 ORAL (19:06)
[2019-07-23] MEDS ORDERED: FERROUS SULFAT325 MG ORAL (19:06)
[2019-07-23] MEDS ORDERED: ACETAMINOPHEN-1 EAC1 ORAL (19:11)
[2019-07-23 19:13] VITALS: BP 132/69
--- NOTE | 2019-07-23 19:13 | NUR ---
ER DISCHARGE NOTE: Patient is cleared to be discharged per ERMD, pt is aox4, on room air, with stable vital signs. pt was given dc and prescription instructions, pt was able to verbalize understanding, pt id band and iv site removed without complications. pt is able to ambulate with steady gait. pt took all belongings. Pt educated on marijuana use, cysts, ab pain.
== END 2019-07-23 19:14 | disposition home or self-care (01) ==
LOC: EMR 18:52
DX: N83.209 Unspecified ovarian cyst, unspecified side (principal); D25.9 Leiomyoma of uterus, unspecified; F12.10 Cannabis abuse, uncomplicated
CPT/HCPCS: 36415; 74177; 80053; 80307; 81003; 81025; 82550; 83690; 85025; 85610; 85730; 96361; 96374; 96375; J1885; J2270; J2405; J7030; Q9967; S0028; Z7502; 99284; J8499

== ENCOUNTER 2019-09-09 14:18 | Emergency (ER) | payer MEDICAID ==
[~2019-09-09] VITALS: Ht 177.8 cm; Wt 98.4 kg
[~2019-09-09 14:18] MED LIST changes: +ACETAMINOPHEN-1 EAC1 ORAL; +FERROUS SULFAT325 MG ORAL; +IBUPROFEN600 M1 ORAL; +OMEPRAZOLE20 M3 ORAL; +ZOFRAN4 M1 ORAL
--- NOTE | 2019-09-09 14:36 | NUR ---
ED Nurse Note: pt ambulated to ED from home c/o left leg pain on the back of her calf mainly for 1 week. denies any injury. Pt's VSS, on RA, afebrile on triage.
[2019-09-09 14:37] VITALS: BP 129/70
--- NOTE | 2019-09-09 14:42 | NUR ---
ED Nurse Note: ERPA at bedside.
--- NOTE | 2019-09-09 14:50 | Emergency Room Report ---
History of Present Illness General Chief Complaint: Pain Source: Patient Present Illness HPI 28 YO female presents to the ED c/o 10/30 in severity posterior left lower extremity pain x 1 week. Pt. reports she is 7 weeks . She denies unilateral swelling, erythema, increase in temperature. Denies trauma or fall. She denies immobilization. Pt. reports prior to she was a tobacco smoker. She denies CP or SOB. She denies LE swelling. Pt. reports pain is relieved with full flexion of the left leg. Pt. reports palpation or putting pressure on the back of the left leg exacerbates her pain. She denies low back pain. She denies rashes. Denies paresthesias. She reports she has not taken any OTC medications in attempt to relieve her symptoms. Allergies: Coded Allergies: No Known Allergies (Unverified , 03/17/18) COVID-19 Screening Contact w/high risk pt: No Recent Travel to affected area: No Experienced COVID-19 symptoms?: No COVID-19 Testing performed RIP MACHINE OPERATOR: No Patient History Past Medical History: see triage record Past Surgical History: none Pertinent Family History: none Now: No Reviewed Nursing Documentation: PMH: Agreed; PSxH: Agreed Nursing Documentation-PMH Past Medical History: No History, Except For Review of Systems All Other Systems: negative except mentioned in HPI Physical Exam Vital Signs Date Time Temp Pulse Resp B/P (MAP) Pulse Ox O2 Delivery O2 Flow Rate FiO2 09/09/19 14:20 97.9 92 17 129/70 (89) 100 Room Air Sp02 EP Interpretation: reviewed, normal General Appearance: no apparent distress, alert, GCS 15, non-toxic Head: normocephalic, atraumatic Eyes: bilateral eye normal inspection, bilateral eye PERRL ENT: hearing grossly normal, normal voice Neck: full range of motion Respiratory: lungs clear, normal breath sounds, speaking full sentences Cardiovascular #1: regular rate, rhythm, no edema, normal capillary refill Cardiovascular #2: 3+ dorsalis pedis (L) - Post. tib Musculoskeletal: back normal, normal range of motion, gait/station normal, tender - distal left hamstring and proximal left calf. no swelling, no erythema or warmth. No palpable posterior tibial pulsations Neurologic: alert, motor strength/tone normal, oriented x3, sensory intact, responsive, speech normal Psychiatric: judgement/insight normal Skin: no rash, normal color Medical Decision Making PA Attestation Dr. Noel is my supervising Physician whom patient management has been discussed with. Diagnostic Impression: Primary Impression: Leg pain, left Additional Impression: Muscle strain ER Course 28 YO female presents to the ED c/o 810 in severity posterior left lower extremity pain x 1 week. Pt. reports she is 7 weeks . She denies unilateral swelling, erythema, increase in temperature. Denies trauma or fall. She denies immobilization. Pt. reports prior to she was a tobacco smoker. She denies CP or SOB. She denies LE swelling. Pt. reports pain is relieved with full flexion of the left leg. Pt. reports palpation or putting pressure on the back of the left leg exacerbates her pain. She denies low back pain. She denies rashes. Denies paresthesias. She reports she has not taken any OTC medications in attempt to relieve her symptoms. Ddx considered but are not limited to Cellulitis, DVT, varicose vein, PAD, Venous insufficiency, Sprain/strain. Vital signs: are WNL, pt. is afebrile. H&PE are most consistent with possible sprain/strain but must r/o DVT. ORDERS: Venous duplex US : negative ED INTERVENTIONS: None required at this time. -I do not identify an emergent condition at this time. With current presentation , pt. is stable for close outpatient follow up and conservative treatment. D/ w pt. to return promptly to ED with worsening or new symptoms.- Pt. verbalizes' understanding and agreement with proposed treatment plan.proposed treatment plan. DISCHARGE: At this time pt. is stable for d/c to home. Will provide printed patient care instructions, and any necessary prescriptions. Care plan and follow up instructions have been discussed with the patient prior to discharge. CT/MRI/US Diagnostic Results CT/MRI/US Diagnostic Results : Imaging Test Ordered: Venous Duplex Left LE Impression -- Negative for DVT - per US technologist Last Vital Signs Date Time Temp Pulse Resp B/P (MAP) Pulse Ox O2 Delivery O2 Flow Rate FiO2 09/09/19 14:37 97.9 17 129/70 100 Room Air 09/09/19 14:20 92 Disposition: HOME, SELF-CARE Condition: Stable Scripts Lidocaine Patch* (Lidoderm Patch*) 1 Each Adh..patch 1 PATCH TOPIC DAILY, #30 PATCH 0 Refills Patch(es) may remain in place for up to 12 hours in any 24-hour period. Prov: Marlene Perez 09/09/19 Acetaminophen* (TYLENOL EXTRA STRENGTH*) 500 Mg Tablet 500 MG ORAL Q6H, #20 TAB 0 Refills Prov: Marlene Perez 09/09/19 Departure Forms: Return to Work Return to Work Date: Sep 12, 2019 Other Restrictions: May return Sooner if Symptoms have resolved. Return to Full Activity: Sep 12, 2019 Work Restrictions: None Patient Instructions: Muscle Pain, Adult Additional Instructions: Take medications as directed. Follow up with a Primary Care Provider in 3-5 days, even if your symptoms have resolved. Return sooner to ED if new symptoms occur, or current symptoms become worse. - Please note that this Emergency Department Report was dictated using [employer] worker production technology software, occasionally this can lead to erroneous entry secondary to interpretation by the dictation equipment. Marlene Perez Sep 09, 2019 14:50
[2019-09-09] MEDS ORDERED: TYLENOL EXTRA500 MG ORAL (15:18)
[2019-09-09] MEDS ORDERED: LIDODERM700 M1 TOPIC (15:18)
[2019-09-09 15:27] VITALS: BP 128/68
--- NOTE | 2019-09-09 15:27 | NUR ---
ER DISCHARGE NOTE: Pt is cleared to be discharged per ERPA, pt is aox4, on room air, with stable vital signs. pt was given dc and prescription instructions, pt was able to verbalize understanding, pt id band removed. pt is able to ambulate with steady gait. pt took all belongings.
--- NOTE | 2019-09-09 15:41 | Diagnostic Imaging Report ---
Indication: Left leg Leg pain and swelling Technique: Grayscale and duplex Doppler imaging of the veins in left lower extremity performed in real time utilizing compression and augmentation. Comparison: None Findings: Duplex Doppler interrogation of the veins in left lower extremity is performed from the common femoral vein to the popliteal vein. Normal venous compressibility demonstrated throughout. No thrombus identified. Waveform analysis shows good respiratory phasicity and augmentation. IMPRESSION: No evidence of deep venous thrombosis in the left lower extremity
== END 2019-09-09 15:27 | disposition home or self-care (01) ==
LOC: EMR 14:59
DX: O26.891 Other specified pregnancy related conditions, first trimester (principal); S86.812A Strain of other muscle(s) and tendon(s) at lower leg level, left leg, initial encounter; M79.605 Pain in left leg; Z3A.01 Less than 8 weeks gestation of pregnancy; X58.XXXA Exposure to other specified factors, initial encounter; Y93.9 Activity, unspecified; Y92.9 Unspecified place or not applicable
CPT/HCPCS: 93971; Z7502; 99284